=== PATIENT | male | born 1950 | race Caucasian/White ===

== ENCOUNTER 2020-10-22 13:45 | Inpatient (IN) ==
[2020-10-22] MEDS ORDERED: ALBUTEROL HFA 8 GM INHALER INH ONE (14:14)
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
[2020-10-22 14:44] LABS: Basophils # (auto) 0.02 K/uL (0-0.2); Basophils % (auto) 0.2 %; Eosinophils # (auto) 0.03 K/uL (0-0.5); Eosinophils % (auto) 0.3 %; Hematocrit (blood only) 41.6 % (42-52); Hemoglobin 13.9 g/dL (14.0-18.0); Immature Granulocytes # (auto) 0.18 K/uL (0.00-0.02); Immature Granulocytes % (auto) 1.7 %; Lymphocytes # (auto) 1.56 K/uL (1.2-3.4); Lymphocytes % (auto) 14.8 %; Mean Corpuscular Hemoglobin 31.7 pg (25-34); Mean Corpuscular Hgb Conc 33.4 g/dL (32-36); Mean Platelet Volume 10.4 fL (7.4-10.4); Monocytes # (auto) 0.69 K/uL (0.11-0.59); Monocytes % (auto) 6.6 %; Neutrophils # (auto) 8.03 K/uL (1.4-6.5); Neutrophils % (auto) 76.4 %; Platelet Count 356 K/uL (130-400); RDW Standard Deviation 45.2 fL (36.4-46.3); Red Blood Count 4.38 M/uL (4.7-6.1); White Blood Count 10.51 K/uL (4.8-10.8)
[2020-10-22 15:02] LABS: Alanine Aminotransferase 10 U/L (12-78); Albumin Level 2.2 gm/dl (3.4-5.0); Aspartate Aminotransferase 55 U/L (15-37); BUN Creatinine Ratio 17.8 (10-20); Blood Urea Nitrogen 17 mg/dl (7-18); Carbon Dioxide 30 mmol/L (21-32); Chloride 97 mmol/L (98-107); Creatinine Clr Calc Pharmacy 86.3 ml/min; Est GFR (African American) 94.9; Est GFR (Non-African American) 81.9; Glucose 122 mg/dl (70-99); Magnesium 2.1 mg/dl (1.8-2.4); Potassium 3.8 mmol/L (3.5-5.1); Sodium 134 mmol/L (136-145)
[2020-10-22 15:12] LABS: Albumin Globulin Ratio 0.4 (0.9-2); Alkaline Phosphatase 67 U/L (45-117); Bilirubin,Total 0.9 mg/dl (0.2-1); Globulin 5.7 gm/dl (2.5-4.0); NT Pro B Type Natriuretic Pept 212 pg/ml (0-900); Thyroid Stimulating Hormone 0.122 uIu/ml (0.300-4.500); Total Protein 7.9 gm/dl (6.4-8.2); Troponin I < 0.015 ng/ml (0-0.045)
[2020-10-22 15:25] LABS: T4 Free Thyroxine 1.43 ng/dl (0.8-1.6)
--- NOTE | 2020-10-22 15:35 | CT Scan Report ---
CT head/brain wo con CLINICAL HISTORY: confusion COMPARISON STUDY: No previous studies for comparison. TECHNIQUE: Axial CT of the brain is performed from the vertex to the skull base. IV contrast was not administered for this examination. A dose lowering technique was utilized adhering to the principles of ALARA. CT DOSE: 884.08 mGy.cm FINDINGS: No intra or extra-axial mass lesions are visualized. There is no CT evidence of acute cortical infarc tion. There is no evidence of midline shift. There is no acute hemorrhage. No calvarial fractures ar e visualized. There are patchy white matter hypodensities likely on a small vessel basis. There is no evidence of pathologic ventricular dilatation. There is mild left exit sinus mucosal thickening. IMPRESSION: No acute intracranial findings ACT 112: Negative or not required by law. Electronically signed by: Mello Vasques M.D. 10/22/2020 3:34 PM
[2020-10-22] MEDS ORDERED: CEFEPIME 2,000 MG/20 ML VIAL IV STA (16:02)
[2020-10-22] MEDS ORDERED: DEXAMETHASONE SOD INJ 10 MG/ML VIAL IV ONE (16:02)
[2020-10-22 16:03] LABS: Influenza A virus by PCR Negative (Neg); Influenza B virus by PCR Negative (Neg); RSV by PCR Negative (Neg)
--- NOTE | 2020-10-22 16:06 | XRay Report ---
XR chest 1V portable CLINICAL HISTORY: weakness COMPARISON STUDY: No previous studies for comparison. FINDINGS: The heart is enlarged. There are multifocal pulmonary airspace opacity suspicious for a mul tifocal pneumonia. There is a more masslike opacity within the right mid to upper lung zone measuring 4.5 cm. Given the other findings, this likely represents a focal pneumonia. Imaging follow-up will b e necessary to exclude an underlying mass.[ IMPRESSION: 1. Cardiomegaly 2. Multifocal airspace opacities suspicious for multifocal pneumonia 3. 4.5 cm masslike opacity within the right mid to upper lung zone. This is likely a focal pneumonia given the other findings. Careful follow-up will be necessary to exclude an underlying neoplasm. ACT 112: Negative or not required by law. Electronically signed by: Mello Vasques M.D. 10/22/2020 4:04 PM
[2020-10-22 16:29] LABS: SARS CoV2 RNA(COVID-19) InHosp POSITIVE (Negative)
[2020-10-22] MEDS ORDERED: OPTIRAY 320 125ml IV ONE (16:32)
--- NOTE | 2020-10-22 16:46 | CT Scan Report ---
CT ANGIOGRAM OF THE CHEST CLINICAL HISTORY: Calf pain and shortness of breath. Possible pulmonary embolism. ABNORMAL CHEST X-RA Y COMPARISON STUDY: Chest x-ray dated 10/22/2020 TECHNIQUE: Following the IV administration of 116 mL of Optiray-320, CT angiogram of the thorax was p erformed from the thoracic inlet to the lung bases utilizing the pulmonary embolus protocol. Images a re reviewed in the axial, sagittal, and coronal planes. IV contrast was administered without complica tion. MIP imaging was performed. A dose lowering technique was utilized adhering to the principles o f ALARA. CT DOSE: 495.61 mGy.cm FINDINGS: There is mediastinal and hilar lymphadenopathy, likely reactive. There is dilatation of the ascending thoracic aorta which measures 40 mm There are segmental and subsegmental right lower lobe and right middle lobe pulmonary artery filling defects indicative of acute pulmonary embolism there is no evidence of right ventricular strain. There are right-sided pleurodiaphragmatic calcifications. There are no significant pleural effusions There are extensive bilateral pulmonary airspace opacities consistent with a multifocal pneumonia. Fi ndings are suspicious for Covid 19 pneumonia IMPRESSION: 1. Right middle and lower lobe pulmonary artery filling defects indicative of acute pulmonary embolis m 2. Extensive bilateral pulmonary airspace opacities consistent with a multifocal pneumonia. The findi ngs are suspicious for Covid 19 pneumonia 3. Mediastinal and hilar lymphadenopathy likely reactive 4. Right-sided calcified pleural plaques 5. Mild aneurysmal dilatation of the ascending thoracic aorta which measures 40 mm ACT 112: Negative or not required by law. Electronically signed by: Mello Vasques M.D. 10/22/2020 4:44 PM
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
[2020-10-22 17:27] LABS: Appearance Urine Clear (Clear); Bacteria Urine Automated Negative (Negative); Blood Urine Negative (Negative); Color Urine Dark Yellow; Epithelial Cell Urine Auto >30 /lpf (0-5); Glucose Urine UA Negative (Negative); Ketones Urine 1+ (Negative); Leukocyte Esterase Urine Negative (Negative); Nitrite Urine Positive (Negative); Protein Urine 2+ (Negative); Specific Gravity Urine > 1.045 (1.000-1.030); Urobilinogen Urine Positive (Negative); pH Urine 6.5 (4.5-7.5)
[2020-10-22 17:36] LABS: Bilirubin Urine 1+ (Negative)
[2020-10-22 18:02] LABS: Mucus Urine Present (None Prsent)
[2020-10-22] MEDS ORDERED: REMDESIVIR 200 MG in SODIUM CHLORIDE 0.9% 210 ML IV STA (18:17)
[2020-10-22] MEDS ORDERED: HEPARIN SODIUM/DEXTROSE 25,000 UNITS/500 ML BAG IV SCH (18:17)
[2020-10-22] MEDS ORDERED: Heparin IV Standard *NO* Bolus ONE (18:17)
[2020-10-22] MEDS ORDERED: ACETAMINOPHEN 325 MG TAB PO SCH (18:41)
[2020-10-22] MEDS ORDERED: ONDANSETRON INJ 2 MG/ML 2 ML VIAL IV PRN (18:41)
[2020-10-22] MEDS ORDERED: ACETAMINOPHEN 325 MG TAB PO PRN (18:41)
[2020-10-22] MEDS: SODIUM CHLORIDE 0.9% 1000ML 1,000 ML IV SCH (20:00)
[2020-10-22] MEDS: SODIUM CHLORIDE 0.9% 10ML FLUSH IV SCH (20:01)
[2020-10-22] MEDS: CARBIDOPA/LEVODOPA 25/100MG TAB PO SCH (20:02)
[2020-10-22] MEDS: MIRTAZAPINE SOLTAB 15 MG PO SCH (20:03)
[2020-10-22] MEDS: PRIMIDONE 50 MG TAB PO SCH (20:03)
[2020-10-22] MEDS: GABAPENTIN 300 MG CAP PO SCH (20:03)
[2020-10-22] MEDS: oxyCODONE HCL IR 5 MG TAB (IMMEDIATE RELEASE) PO PRN (20:04)
[2020-10-23 02:37] LABS: Partial Thromboplastin Time 56.5 Seconds (21.0-31.0)
[2020-10-23] MEDS: SODIUM CHLORIDE 0.9% 1000ML 1,000 ML IV SCH (05:16)
--- NOTE | 2020-10-23 07:51 | Hospitalist Progress Note ---
Date of Service October 23, 2020 Assessment & Plan (1) Pneumonia due to 2019 novel coronavirus: Acute respiratory failure with hypoxia due to Covid pneumonia illness started 10/15/20 * dexamethasone 6mg IV/PO daily x 10 days * his sister and he both consented for plasma * Remdesivir x 5 days Pulmonary toilet, self-proning (if he can tolerate - has chronic low back pain), and flutter valve/incentive. O2 to keep sats >90%. CT chest 10/22/20 IMPRESSION: 1. Right middle and lower lobe pulmonary artery filling defects indicative of acute pulmonary embolism 2. Extensive bilateral pulmonary airspace opacities consistent with a multifocal pneumonia. The findings are suspicious for Covid 19 pneumonia 3. Mediastinal and hilar lymphadenopathy likely reactive 4. Right-sided calcified pleural plaques 5. Mild aneurysmal dilatation of the ascending thoracic aorta which measures 40 mm (2) Pulmonary embolism associated with COVID-19: Started heparin infusion - transition to xarelto Initial discussion the check Dopplers was thwarted with the patient's Covid status and the fact that Doppler finding blood clots would not change our therapeutic decision is currently radiology asked for Dopplers to be discontinued (3) Hyponatremia: Resolved (4) Metabolic encephalopathy: 2nd COVID-19. This is in setting of mild cognitive impairment. Patient's discussion of alcohol use will be having our nursing staff URI for signs of alcohol withdrawal Supportive care. Avoid benzos/sedatives. Reduce dose of gabapentin to 300mg TID from 600mg TID in light of mild confusion. (5) MCI (mild cognitive impairment): Continue usual outpatient meds. Donepezil (6) Parkinsonism: Follows with Dr Thompson, [facility] neurology. Last visit 06/2020. Cont sinemet. Cont primidone. Patient with worsening tremors, rigidity, etc last 1-2 weeks. There is documentation in the literature that COVID-19 worsens movement disorders. He also has been noncompliant with his parkinsonism meds per sister. (7) Chronic pain syndrome: Takes oxycodone daily at home for lumbar back pain, right shoulder pain, left knee pain, etc. Continue such. Also takes gabapentin Bowel regimen. (8) Elevated AST (SGOT): Likely 2nd to COVID-19 itself. Serial ast/alt in light of Remdesivir use. (9) Abnormal casts in urine: RBC casts, WBC casts, granular casts. C/w probable ATN in setting of COVID-19. He has protein on u/a but no blood - this would argue against glomerulonephritis. (10) DVT prophylaxis: Transition to therapeutic Xarelto full code. PT, OT evals. Admission and Anticipated Discharge Date Admission Date: October 22, 2020 Subjective Patient is complaints or distress he is somewhat confused about his oxygen requirements he did make comments about drinking a sixpack I instructed the nurse to be wary about alcohol withdrawal in this patient. Otherwise he is dyspneic with a nonproductive cough Review of Systems Review of Systems: Mild distress and fatigue no headache, blurry or double vision no speech or swallowing issues no loss of taste he has chronic loss of smell after nasal surgery some years ago no chest pain, pressure or palpitations Shortness of breath dyspnea nonproductive cough no wheezes no abdominal pain, nausea or vomiting, diarrhea no dysuria, hematuria or frequency no focal joint pain or swelling no back pain, CVA tenderness or radicular pain no bruising, bleeding or rashes no focal signs of weakness or numbness or altered sensation no complaints of anxiety or depression.. Physical Exam Physical Exam: The patient appeared well nourished and normally developed. Vital signs as documented. Head exam is normocephalic atraumatic no scleral icterus Neck is without JVD, thyromegaly, or carotid bruits. Lungs are bilateral rales decreased breath sounds at the bases Cardiac exam, Rhythm is regular.. No murmurs, rubs or gallops. Abdominal exam reveals normal bowel sounds, soft non tender, no masses Extremities are nonedematous and both pedal pulses are present Neurologic exam is alert and oriented, seem to say some strange responses at times but is oriented, no focal loss of strength or sensation Skin is without bruises or rashes Psychologically is without concerns for anxiety or depression. Results & Data Results & Data ([facility]) Vital Signs (Past 12 Hours) Vital Signs Temp Pulse Pulse Resp BP BP Pulse Ox 10/23/20 07:00 97.0 F L 62 18 114/51 L 90 10/23/20 04:39 96.3 F L 62 16 136/68 92 10/23/20 00:52 96.3 F L 59 L 18 153/93 H 92 10/23/20 00:25 95.9 F L 10/23/20 00:22 96.1 F L 65 16 181/90 H 92 10/23/20 00:07 95.9 F L 68 18 147/93 H 92 10/22/20 23:52 94.4 F L 10/22/20 23:30 63 18 140/70 92 PG Care Time/CCT Total # of Minutes Spent Total Time Spent with Patient: Total time spent is greater than 50% in coordination of care (as documented) at patient's floor/unit and/or counseling patient: Coding Level of Care Code 05462 Subseq Hosp Care Lvl 3 Diagnoses Pneumonia due to 2019 novel coronavirus U07.1; J12.82 Pulmonary embolism associated with COVID-19 U07.1; I26.99 Hyponatremia E87.1 Metabolic encephalopathy G93.41 MCI (mild cognitive impairment) G31.84 Parkinsonism G20 Parkinsonism type: unspecified Chronic pain syndrome G89.4 Elevated AST (SGOT) R74.01 Abnormal casts in urine R82.998 DVT prophylaxis Z29.9 (1) Parkinsonism Parkinsonism type: unspecified Qualified Code(s): G20 - Parkinson's disease
[2020-10-23] MEDS: ASPIRIN 81 MG ECTAB PO SCH (08:18)
[2020-10-23] MEDS: dexAMETHasone 6 MG in SYRINGE 0 ML IV SCH (08:18)
[2020-10-23] MEDS: DONEPEZIL HCL 10 MG TAB PO SCH (08:18)
[2020-10-23] MEDS: POLYETHYLENE (MIRALAX) 17 GM PACK PO SCH (08:18)
[2020-10-23] MEDS: GABAPENTIN 300 MG CAP PO SCH ×3 (08:19→20:17)
[2020-10-23] MEDS: PRIMIDONE 50 MG TAB PO SCH ×3 (08:19→20:19)
[2020-10-23] MEDS: SERTRALINE HCL 100 MG TABLET PO SCH (08:20)
[2020-10-23] MEDS: CARBIDOPA/LEVODOPA 25/100MG TAB PO SCH ×4 (08:20→20:17)
[2020-10-23] MEDS: CHOLECALCIFEROL 1,000 UNITS 25 MCG TAB PO SCH (08:20)
[2020-10-23] MEDS: RIVAROXABAN 15 MG TAB PO SCH ×2 (08:22→20:19)
[2020-10-23] MEDS: oxyCODONE HCL IR 5 MG TAB (IMMEDIATE RELEASE) PO PRN (08:30)
[2020-10-23 08:48] LABS: Partial Thromboplastin Ratio 2.2
[2020-10-23 08:50] LABS: BUN Creatinine Ratio 24.5 (10-20); Calcium 8.4 mg/dl (8.5-10.1); Creatinine Clr Calc Pharmacy 127.7 ml/min; Est GFR (African American) 115.9; Potassium 4.1 mmol/L (3.5-5.1)
[2020-10-23 08:55] LABS: Partial Thromboplastin Time 60.3 Seconds (21.0-31.0)
--- NOTE | 2020-10-23 12:27 | Electrocardiogram Report ---
Test Reason : Blood Pressure : / mmHG Vent. Rate : 088 BPM Atrial Rate : 088 BPM P-R Int : 182 ms QRS Dur : 104 ms QT Int : 376 ms P-R-T Axes : 038 014 045 degrees QTc Int : 454 ms Poor data quality, interpretation may be adversely affected Normal sinus rhythm Normal ECG No previous ECGs available Confirmed by Shadi Quezada ([id number]) on 10/23/2020 12:26:54 PM Referred By: Mikki Mason Confirmed By:Shadi Quezada
[2020-10-23] MEDS: REMDESIVIR 100 MG in SODIUM CHLORIDE 0.9% 230 ML IV SCH (20:10)
[2020-10-23] MEDS: MIRTAZAPINE SOLTAB 15 MG PO SCH (20:20)
[2020-10-23] MEDS: SODIUM CHLORIDE 0.9% 10ML FLUSH IV SCH (21:43)
[2020-10-24 07:26] LABS: Alanine Aminotransferase 11 U/L (12-78); Aspartate Aminotransferase 32 U/L (15-37)
[2020-10-24] MEDS: PRIMIDONE 50 MG TAB PO SCH ×3 (08:51→20:23)
[2020-10-24] MEDS: RIVAROXABAN 15 MG TAB PO SCH ×2 (08:53→20:22)
[2020-10-24] MEDS: SERTRALINE HCL 100 MG TABLET PO SCH (08:53)
[2020-10-24] MEDS: CHOLECALCIFEROL 1,000 UNITS 25 MCG TAB PO SCH (08:53)
[2020-10-24] MEDS: DONEPEZIL HCL 10 MG TAB PO SCH (08:54)
[2020-10-24] MEDS: GABAPENTIN 300 MG CAP PO SCH ×3 (08:57→20:23)
[2020-10-24] MEDS: ASPIRIN 81 MG ECTAB PO SCH (08:57)
[2020-10-24] MEDS: CARBIDOPA/LEVODOPA 25/100MG TAB PO SCH ×4 (08:58→20:24)
[2020-10-24] MEDS: dexAMETHasone 6 MG in SYRINGE 0 ML IV SCH (08:59)
[2020-10-24] MEDS: POLYETHYLENE (MIRALAX) 17 GM PACK PO SCH (08:59)
--- NOTE | 2020-10-24 11:16 | Hospitalist Progress Note ---
Date of Service October 24, 2020 Assessment & Plan (1) Pneumonia due to 2019 novel coronavirus: Acute respiratory failure with hypoxia due to Covid pneumonia illness started 10/15/20 * dexamethasone 6mg IV/PO daily x 10 days, today is day 3 * plasma administered * Remdesivir x 5 days, today is day 3 Pulmonary toilet, self-proning (if he can tolerate - has chronic low back pain), and flutter valve/incentive. O2 to keep sats >90%. CT chest 10/22/20 IMPRESSION: 1. Right middle and lower lobe pulmonary artery filling defects indicative of acute pulmonary embolism 2. Extensive bilateral pulmonary airspace opacities consistent with a multifocal pneumonia. The findings are suspicious for Covid 19 pneumonia 3. Mediastinal and hilar lymphadenopathy likely reactive 4. Right-sided calcified pleural plaques 5. Mild aneurysmal dilatation of the ascending thoracic aorta which measures 40 mm (2) Pulmonary embolism associated with COVID-19: Started heparin infusion - transitioned to xarelto 15mg BID would need 6 months of treatment (3) Hyponatremia: Resolved (4) Metabolic encephalopathy: 2nd COVID-19. This is in setting of mild cognitive impairment. Patient's discussion of alcohol use will be having our nursing staff URI for signs of alcohol withdrawal Supportive care. Avoid benzos/sedatives. Reduce dose of gabapentin to 300mg TID from 600mg TID in light of mild confusion. mental status seems stable today (5) MCI (mild cognitive impairment): Continue usual outpatient meds. Donepezil (6) Parkinsonism: [place] with Dr Thompson, [facility] [place]. Last visit 06/2020. Cont sinemet. Cont primidone. Patient with worsening tremors, rigidity, etc last 1-2 weeks. There is documentation in the literature that COVID-19 worsens movement disorders. He also has been noncompliant with his parkinsonism meds per sister. (7) Chronic pain syndrome: Takes oxycodone daily at home for lumbar back pain, right shoulder pain, left knee pain, etc. Continue such. Also takes gabapentin Bowel regimen. (8) Elevated AST (SGOT): Likely 2nd to COVID-19 itself. Serial ast/alt in light of Remdesivir use. (9) Abnormal casts in urine: RBC casts, WBC casts, granular casts. C/w probable ATN in setting of COVID-19. He has protein on u/a but no blood - this would argue against glomerulonephritis. (10) DVT prophylaxis: Transition to therapeutic Xarelto full code. PT, OT jodyals. Admission and Anticipated Discharge Date Admission Date: October 22, 2020 Subjective patient feeling okay this morning, says he is really fatigued he slept a lot last night, was up in a chair for maybe 30 minutes today, needed to lay back down no fever/chills, eating well, had a BM yesterday and making urine no chest pain with the PE, no fever/chills, minimal cough has dyspnea on exertion but not much at rest reviewed chart reviewed labs, AST and ALT normal Review of Systems Review of Systems: All systems reviewed & are unremarkable except as noted in Subjective Physical Exam Constitutional: WD/WN, vitals as above no acute distress Neck: trachea midline, no thyromegaly Respiratory: normal respiratory effort, lungs clear to auscultation Cardiovascular: RRR, no murmur, no edema Gastrointestinal (Abdomen): normal bowel sounds, soft, nontender, no hepatosplenomegaly Musculoskeletal: no cyanosis or clubbing, extremities motor strength 5/5 Skin: no rashes, warm and dry Neurologic: patellar DTR's 2+ bilat, sensation intact and PERRL, EOMI, accommodation nl, no face palsy, no dysarthria Psychiatric: A+Ox3, euthymic affect Lymphatic: no cervical or axillary lymphadenopathy Results & Data Results & Data ([facility]) Vital Signs (Past 12 Hours) Vital Signs Temp Pulse Pulse Resp BP Pulse Ox Pulse Ox 10/24/20 10:03 71 10/24/20 09:43 85 L 10/24/20 07:25 36.3 C L 65 17 121/55 L 98 10/24/20 04:00 36.8 C 64 19 103/44 L 92 10/23/20 23:35 36.8 C 60 19 90/44 L 97 Pulse Ox 10/24/20 10:03 10/24/20 09:43 90 10/24/20 07:25 10/24/20 04:00 10/23/20 23:35 Laboratory Results Laboratory Results - last 24 hr 10/24/20 06:14 AST 32 ALT 11 L Medications Administered Current Inpatient Medications Acetaminophen (Acetaminophen 325 Mg Tab) 650 mg PO Q4H PRN PRN Reason: Pain or Fever Stop: 03/01/21 18:40 Aspirin (Aspirin 81 Mg Ectab) 81 mg PO QAM [facility] Stop: 11/22/20 08:59 Last Admin: 10/24/20 08:57 Dose: 81 mg Documented by: Carbidopa/Levodopa (Carbidopa/Levodopa 25/100mg Tab) 2 tab PO QID [facility] Stop: 11/21/20 20:59 Last Admin: 10/24/20 08:58 Dose: 2 tab Documented by: Donepezil HCl (Donepezil Hcl 10 Mg Tab) 10 mg PO QAM [facility] Stop: 11/22/20 08:59 Last Admin: 10/24/20 08:54 Dose: 10 mg Documented by: Gabapentin (Gabapentin 300 Mg Cap) 300 mg PO TID [facility] Stop: 11/21/20 20:59 Last Admin: 10/24/20 08:57 Dose: 300 mg Documented by: Remdesivir 100 mg/ Sodium (Chloride) 250 mls @ 250 mls/hr IV Q24H [facility]; Protocol Stop: 10/26/20 20:59 Last Infusion: 10/23/20 21:43 Dose: Infused Documented by: Dexamethasone 6 mg/ Syringe 1.5 mls @ 1 mls/min IV DAILY [facility] Stop: 10/31/20 09:02 Last Admin: 10/24/20 08:59 Dose: 1 mls/min Documented by: Mirtazapine (Mirtazapine Soltab 15 Mg) 45 mg PO HS [facility] Stop: 11/21/20 20:59 Last Admin: 10/23/20 20:20 Dose: 45 mg Documented by: Ondansetron HCl (Ondansetron Inj 2 Mg/Ml 2 Ml Vial) 4 mg IV Q6H PRN PRN Reason: Nausea Stop: 11/21/20 18:40 Oxycodone HCl (Oxycodone Hcl Ir 5 Mg Tab (Immediate Release)) 10 mg PO TID PRN PRN Reason: pain Stop: 11/05/20 18:40 Last Admin: 10/23/20 08:30 Dose: 10 mg Documented by: Polyethylene Glycol (Polyethylene (Miralax) 17 Gm Pack) 17 gm PO DAILY [facility] Stop: 11/22/20 08:59 Last Admin: 10/24/20 08:59 Dose: Not Given Documented by: Primidone (Primidone 50 Mg Tab) 50 mg PO TID [facility] Stop: 11/21/20 20:59 Last Admin: 10/24/20 08:51 Dose: 50 mg Documented by: Rivaroxaban (Rivaroxaban 15 Mg Tab) 15 mg PO BID [facility] Stop: 11/12/20 21:01 Last Admin: 10/24/20 08:53 Dose: 15 mg Documented by: Sertraline HCl (Sertraline Hcl 100 Mg Tablet) 100 mg PO QAM [facility] Stop: 11/22/20 08:59 Last Admin: 10/24/20 08:53 Dose: 100 mg Documented by: Sodium Chloride (Sodium Chloride 0.9% 10ml Flush) 30 ml IV Q24H [facility] Stop: 10/26/20 21:01 Last Admin: 10/23/20 21:43 Dose: 30 ml Documented by: Vitamin D (Cholecalciferol 1,000 Units 25 Mcg Tab) 1,000 units PO QAM [facility] Stop: 11/22/20 08:59 Last Admin: 10/24/20 08:53 Dose: 1,000 units Documented by: PG Care Time/CCT Total # of Minutes Spent Total Time Spent with Patient: Total time spent is greater than 50% in coordination of care (as documented) at patient's floor/unit and/or counseling patient: Coding Level of Care Code 11697 Subseq Hosp Care Lvl 3 Diagnoses Pneumonia due to 2019 novel coronavirus U07.1; J12.82 Pulmonary embolism associated with COVID-19 U07.1; I26.99 Hyponatremia E87.1 Metabolic encephalopathy G93.41 MCI (mild cognitive impairment) G31.84 Parkinsonism G20 Parkinsonism type: unspecified Chronic pain syndrome G89.4 Elevated AST (SGOT) R74.01 Abnormal casts in urine R82.998 DVT prophylaxis Z29.9 (1) Parkinsonism Parkinsonism type: unspecified Qualified Code(s): G20 - Parkinson's disease
[2020-10-24] MEDS: oxyCODONE HCL IR 5 MG TAB (IMMEDIATE RELEASE) PO PRN (11:32)
[2020-10-24] MEDS: REMDESIVIR 100 MG in SODIUM CHLORIDE 0.9% 230 ML IV SCH (20:19)
[2020-10-24] MEDS: MIRTAZAPINE SOLTAB 15 MG PO SCH (20:22)
[2020-10-24] MEDS: SODIUM CHLORIDE 0.9% 10ML FLUSH IV SCH (22:30)
[2020-10-25 07:36] LABS: Alanine Aminotransferase 15 U/L (12-78); Aspartate Aminotransferase 43 U/L (15-37)
[2020-10-25] MEDS: CHOLECALCIFEROL 1,000 UNITS 25 MCG TAB PO SCH (09:16)
[2020-10-25] MEDS: PRIMIDONE 50 MG TAB PO SCH ×3 (09:17→20:15)
[2020-10-25] MEDS: ASPIRIN 81 MG ECTAB PO SCH (09:18)
[2020-10-25] MEDS: GABAPENTIN 300 MG CAP PO SCH ×3 (09:18→20:15)
[2020-10-25] MEDS: DONEPEZIL HCL 10 MG TAB PO SCH (09:18)
[2020-10-25] MEDS: RIVAROXABAN 15 MG TAB PO SCH ×2 (09:19→20:15)
[2020-10-25] MEDS: dexAMETHasone 6 MG in SYRINGE 0 ML IV SCH (09:19)
[2020-10-25] MEDS: CARBIDOPA/LEVODOPA 25/100MG TAB PO SCH ×4 (09:19→20:15)
[2020-10-25] MEDS: SERTRALINE HCL 100 MG TABLET PO SCH (09:19)
[2020-10-25] MEDS: POLYETHYLENE (MIRALAX) 17 GM PACK PO SCH (09:20)
[2020-10-25] MEDS: oxyCODONE HCL IR 5 MG TAB (IMMEDIATE RELEASE) PO PRN (09:25)
--- NOTE | 2020-10-25 13:39 | Hospitalist Progress Note ---
Date of Service October 25, 2020 Assessment & Plan (1) Acute respiratory failure with hypoxia: due to COVID 19 pneumonia and acute PE stable on 5L today, no distress continue to try to wean down oxygen requirements (2) Pneumonia due to 2019 novel coronavirus: Acute respiratory failure with hypoxia due to Covid pneumonia illness started 10/15/20 * dexamethasone 6mg IV/PO daily x 10 days, today is day 4 * plasma administered * Remdesivir x 5 days, today is day 4 Pulmonary toilet, self-proning (if he can tolerate - has chronic low back pain), and flutter valve/incentive. O2 to keep sats >90%. (3) Pulmonary embolism associated with COVID-19: Started heparin infusion on admission - transitioned to xarelto 15mg BID x 21 days then 20mg daily would need 6 months of treatment (4) Hyponatremia: Resolved (5) Metabolic encephalopathy: 2nd COVID-19. This is in setting of mild cognitive impairment. Patient's discussion of alcohol use will be having our nursing staff URI for signs of alcohol withdrawal Supportive care. Avoid benzos/sedatives. Reduce dose of gabapentin to 300mg TID from 600mg TID in light of mild confusion. mental status seems stable today (6) MCI (mild cognitive impairment): Continue usual outpatient meds. Donepezil (7) Parkinsonism: [place] with Dr Thompson, [facility]. Last visit 06/2020. Cont sinemet. Cont primidone. Patient with worsening tremors, rigidity, etc last 1-2 weeks. There is documentation in the literature that COVID-19 worsens movement disorders. He also has been noncompliant with his parkinsonism meds per sister. (8) Chronic pain syndrome: Takes oxycodone daily at home for lumbar back pain, right shoulder pain, left knee pain, etc. Continue such. Also takes gabapentin Bowel regimen. (9) Elevated AST (SGOT): Likely 2nd to COVID-19 itself. Serial ast/alt in light of Remdesivir use. (10) Abnormal casts in urine: RBC casts, WBC casts, granular casts. C/w probable ATN in setting of COVID-19. He has protein on u/a but no blood - this would argue against glomerulonephritis. (11) DVT prophylaxis: Transition to therapeutic Xarelto full code. PT, OT evals. Admission and Anticipated Discharge Date Admission Date: October 22, 2020 Subjective patient doing okay today, no major issues he participated with physical therapy, refused OT because he felt like he had done enough he is upset about timing of his medications, he wants to take his Sinemet with his primidone and gabapentin he is eating okay, had a BM yesterday, making urine AST and ALT normal today he is down to 5L NC today he wants to know when he can leave, told him he will be here all week Review of Systems Review of Systems: All systems reviewed & are unremarkable except as noted in Subjective Constitutional: no fever, no chills, no sweats, no fatigue and no weakness Respiratory: + dyspnea on exertion; no cough and no dyspnea Cardiovascular: no chest pain and no edema Physical Exam Constitutional: WD/WN, vitals as above no acute distress Neck: trachea midline, no thyromegaly Respiratory: normal respiratory effort, lungs clear to auscultation Cardiovascular: RRR, no murmur, no edema Gastrointestinal (Abdomen): normal bowel sounds, soft, nontender, no hepatosplenomegaly Musculoskeletal: no cyanosis or clubbing, extremities motor strength 5/5 Skin: no rashes, warm and dry Neurologic: patellar DTR's 2+ bilat, sensation intact and PERRL, EOMI, accommodation nl, no face palsy, no dysarthria Psychiatric: A+Ox3, euthymic affect Lymphatic: no cervical or axillary lymphadenopathy Results & Data Results & Data ([facility]) Vital Signs (Past 12 Hours) Vital Signs Temp Pulse Pulse Resp BP BP Pulse Ox 10/25/20 11:39 36.5 C 77 18 115/50 L 90 10/25/20 11:15 68 10/25/20 07:54 36.5 C 74 18 99/54 L 91 10/25/20 03:23 36.6 C 75 22 134/65 90 Laboratory Results Laboratory Results - last 24 hr 10/25/20 05:58 AST 43 H ALT 15 Medications Administered Current Inpatient Medications Acetaminophen (Acetaminophen 325 Mg Tab) 650 mg PO Q4H PRN PRN Reason: Pain or Fever Stop: 11/21/20 18:40 Aspirin (A[facility]in 81 Mg Ectab) [facility] Stop: 11/22/20 08:59 Last Admin: 10/25/20 09:18 Dose: 81 mg Documented by: Carbidopa/Levodopa (Carbidopa/Levodopa 25/100mg Tab) 2 tab PO QID [facility] Stop: 11/21/20 20:59 Last Admin: 10/25/20 12:16 Dose: 2 tab Documented by: Donepezil HCl (Donepezil Hcl 10 Mg Tab) 10 mg PO QAM [facility] Stop: 11/22/20 08:59 Last Admin: 10/25/20 09:18 Dose: 10 mg Documented by: Gabapentin (Gabapentin 300 Mg Cap) 300 mg PO TID [facility] Stop: 11/21/20 20:59 Last Admin: 10/25/20 13:20 Dose: 300 mg Documented by: Remdesivir 100 mg/ Sodium (Chloride) 250 mls @ 250 mls/hr IV Q24H [facility]; Protocol Stop: 10/26/20 20:59 Last Infusion: 10/24/20 22:30 Dose: Infused Documented by: Dexamethasone 6 mg/ Syringe 1.5 mls @ 1 mls/min IV DAILY [facility] Stop: 10/31/20 09:02 Last Admin: 10/25/20 09:19 Dose: 1 mls/min Documented by: Mirtazapine (Mirtazapine Soltab 15 Mg) 45 mg PO HS [facility] Stop: 11/21/20 20:59 Last Admin: 10/24/20 20:22 Dose: 45 mg Documented by: Ondansetron HCl (Ondansetron Inj 2 Mg/Ml 2 Ml Vial) 4 mg IV Q6H PRN PRN Reason: Nausea Stop: 11/21/20 18:40 Oxycodone HCl (Oxycodone Hcl Ir 5 Mg Tab (Immediate Release)) 10 mg PO TID PRN PRN Reason: pain Stop: 11/05/20 18:40 Last Admin: 10/25/20 09:25 Dose: 10 mg Documented by: Polyethylene Glycol (Polyethylene (Miralax) 17 Gm Pack) 17 gm PO DAILY [facility] Stop: 11/22/20 08:59 Last Admin: 10/25/20 09:20 Dose: Not Given Documented by: Primidone (Primidone 50 Mg Tab) 50 mg PO TID [facility] Stop: 11/21/20 20:59 Last Admin: 10/25/20 13:18 Dose: 50 mg Documented by: Rivaroxaban (Rivaroxaban 15 Mg Tab) 15 mg PO BID [facility] Stop: 11/12/20 21:01 Last Admin: 10/25/20 09:19 Dose: 15 mg Documented by: Sertraline HCl (Sertraline Hcl 100 Mg Tablet) 100 mg PO QAM [facility] Stop: 11/22/20 08:59 Last Admin: 10/25/20 09:19 Dose: 100 mg Documented by: Sodium Chloride (Sodium Chloride 0.9% 10ml Flush) 30 ml IV Q24H [facility] Stop: 10/26/20 21:01 Last Admin: 10/24/20 22:30 Dose: 30 ml Documented by: Vitamin D (Cholecalciferol 1,000 Units 25 Mcg Tab) 1,000 units PO QAM [facility] Stop: 11/22/20 08:59 Last Admin: 10/25/20 09:16 Dose: 1,000 units Documented by: PG Care Time/CCT Total # of Minutes Spent Total Time Spent with Patient: Total time spent is greater than 50% in coordination of care (as documented) at patient's floor/unit and/or counseling patient: Coding Level of Care Code 26102 Subseq Hosp Care Lvl 3 Diagnoses Acute respiratory failure with hypoxia J96.01 Pneumonia due to 2019 novel coronavirus U07.1; J12.82 Pulmonary embolism associated with COVID-19 U07.1; I26.99 Hyponatremia E87.1 Metabolic encephalopathy G93.41 MCI (mild cognitive impairment) G31.84 Parkinsonism G20 Parkinsonism type: unspecified Chronic pain syndrome G89.4 Elevated AST (SGOT) R74.01 Abnormal casts in urine R82.998 DVT prophylaxis Z29.9 (1) Parkinsonism Parkinsonism type: unspecified Qualified Code(s): G20 - Parkinson's disease
[2020-10-25] MEDS: REMDESIVIR 100 MG in SODIUM CHLORIDE 0.9% 230 ML IV SCH (20:05)
[2020-10-25] MEDS: MIRTAZAPINE SOLTAB 15 MG PO SCH (20:15)
[2020-10-25] MEDS: SODIUM CHLORIDE 0.9% 10ML FLUSH IV SCH (22:42)
[2020-10-26] MEDS: oxyCODONE HCL IR 5 MG TAB (IMMEDIATE RELEASE) PO PRN ×3 (05:11→17:42)
[2020-10-26 06:54] LABS: Alanine Aminotransferase 29 U/L (12-78); Aspartate Aminotransferase 89 U/L (15-37)
[2020-10-26] MEDS: RIVAROXABAN 15 MG TAB PO SCH ×2 (08:05→20:08)
[2020-10-26] MEDS: CHOLECALCIFEROL 1,000 UNITS 25 MCG TAB PO SCH (08:05)
[2020-10-26] MEDS: POLYETHYLENE (MIRALAX) 17 GM PACK PO SCH (08:05)
[2020-10-26] MEDS: DONEPEZIL HCL 10 MG TAB PO SCH (08:05)
[2020-10-26] MEDS: CARBIDOPA/LEVODOPA 25/100MG TAB PO SCH ×4 (08:05→20:09)
[2020-10-26] MEDS: SERTRALINE HCL 100 MG TABLET PO SCH (08:05)
[2020-10-26] MEDS: PRIMIDONE 50 MG TAB PO SCH ×3 (08:05→20:09)
[2020-10-26] MEDS: GABAPENTIN 300 MG CAP PO SCH ×3 (08:05→20:08)
[2020-10-26] MEDS: ASPIRIN 81 MG ECTAB PO SCH (08:05)
[2020-10-26] MEDS: dexAMETHasone 6 MG in SYRINGE 0 ML IV SCH (08:06)
--- NOTE | 2020-10-26 12:50 | Hospitalist Progress Note ---
Date of Service October 26, 2020 Assessment & Plan (1) Acute respiratory failure with hypoxia: due to COVID 19 pneumonia and acute PE remains stable on 5L today, no distress continue to try to wean down oxygen requirements (2) Pneumonia due to 2019 novel coronavirus: Acute respiratory failure with hypoxia due to Covid pneumonia illness started 10/15/20 * dexamethasone 6mg IV/PO daily x 10 days, today is day 5 * plasma administered * Remdesivir x 5 days, completed 2/3 Pulmonary toilet, self-proning (if he can tolerate - has chronic low back pain), and flutter valve/incentive. O2 to keep sats >90%. (3) Pulmonary embolism associated with COVID-19: Started heparin infusion on admission - transitioned to xarelto 15mg BID x 21 days then 20mg daily would need 6 months of treatment (4) Hyponatremia: Resolved (5) Metabolic encephalopathy: 2nd COVID-19. This is in setting of mild cognitive impairment. Patient's discussion of alcohol use will be having our nursing staff URI for signs of alcohol withdrawal Supportive care. Avoid benzos/sedatives. Reduce dose of gabapentin to 300mg TID from 600mg TID in light of mild confusion. mental status stable for several days, will increase gabapentin back to 600mg TID (6) MCI (mild cognitive impairment): Continue usual outpatient meds. Donepezil (7) Parkinsonism: Follows with Dr Thompson, [facility] neurolog[facility]. Last visit 06/2020. Cont sinemet. Cont primidone. Patient with worsening tremors, rigidity, etc last 1-2 weeks. There is documentation in the literature that COVID-19 worsens movement disorders. He also has been noncompliant with his parkinsonism meds per sister. (8) Chronic pain syndrome: Takes oxycodone daily at home for lumbar back pain, right shoulder pain, left knee pain, etc. Continue such. Also takes gabapentin Bowel regimen. (9) Elevated AST (SGOT): Likely 2nd to COVID-19 itself. Serial ast/alt in light of Remdesivir use, levels have been stable (10) Abnormal casts in urine: RBC casts, WBC casts, granular casts. C/w probable ATN in setting of COVID-19. He has protein on u/a but no blood - this would argue against isis merulonephritis. (11) DVT prophylaxis: Transition to therapeutic Xarelto full code. PT, OT evals. (12) Insomnia: likely due to being in hospital, uncomfortable in bed will increase his gabapentin to 600mg TID which is his home dose will try a small dose of Ativan 0.5mg PO at bedtime Admission and Anticipated Discharge Date Admission Date: October 22, 2020 Subjective patient doing okay today, says he needs to get home, says he cannot get rest here says the bed is uncomfortable, asking about setting up for home oxygen and going home explained to him that he is on too much oxygen today, 5L, would be okay sending him on 2L he is eating okay spoke with him about increasing his gabapentin back up to 600mg, he agrees asked him if he drinks on a regular basis as that may be a reason for his inability to rest, he says he does not drink regularly he is making urine, moving his bowels no fever/chills he asked me to text his sister with updates, told him I could do that once but t ypically we do not test family members due to privacy Review of Systems Review of Systems: All systems reviewed & are unremarkable except as noted in Subjective Psychiatric: + abnormal sleep pattern, + irritability and + anxiety Physical Exam Constitutional: WD/WN, vitals as above no acute distress Neck: trachea midline, no thyromegaly Respiratory: normal respiratory effort, lungs clear to auscultation Cardiovascular: RRR, no murmur, no edema Gastrointestinal (Abdomen): normal bowel sounds, soft, nontender, no hepatosplenomegaly Musculoskeletal: no cyanosis or clubbing, extremities motor strength 5/5 Skin: no rashes, warm and dry Neurologic: patellar DTR's 2+ bilat, sensation intact and PERRL, EOMI, accommodation nl, no face palsy, no dysarthria Psychiatric: A+Ox3, euthymic affect Lymphatic: no cervical or axillary lymphadenopathy Results & Data Results & Data ([facility]) Vital Signs (Past 12 Hours) Vital Signs Temp Pulse Resp BP BP Pulse Ox 10/26/20 11:00 36.4 C L 74 20 120/65 91 10/26/20 07:10 36.4 C L 72 22 118/62 92 10/26/20 04:37 36.4 C L 63 20 130/61 95 Laboratory Results Laboratory Results - last 24 hr 10/26/20 06:07 AST 89 H ALT 29 Medications Administered Current Inpatient Medications Acetaminophen (Acetaminophen 325 Mg Tab) 650 mg PO Q4H PRN PRN Reason: Pain or Fever Stop: 11/21/20 18:40 Aspirin (Aspirin 81 Mg Ectab) 81 mg PO QAM [facility] Stop: 11/22/20 08:59 Last Admin: 10/26/20 08:05 Dose: 81 mg Documented by: Carbidopa/Levodopa (Carbidopa/Levodopa 25/100mg Tab) 2 tab PO QID [facility] Stop: 11/21/20 20:59 Last Admin: 10/26/20 12:16 Dose: 2 tab Documented by: Donepezil HCl ([facility] Hcl 10 Mg Tab) [facility] Stop: 11/22/20 08:59 Last Admin: 10/26/20 08:05 Dose: 10 mg Documented by: Gabapentin (Gabapentin 300 Mg Cap) 300 mg PO TID [facility] Stop: 11/21/20 20:59 Last Admin: 10/26/20 08:05 Dose: 300 mg Documented by: Remdesivir 100 mg/ Sodium (Chloride) 250 mls @ 250 mls/hr IV Q24H [facility]; Protocol Stop: 10/26/20 20:59 Last Infusion: 10/25/20 21:05 Dose: Infused Documented by: Dexamethasone 6 mg/ Syringe 1.5 mls @ 1 mls/min IV DAILY [facility] Stop: 10/31/20 09:02 Last Admin: 10/26/20 08:06 Dose: 1 mls/min Documented by: Mirtazapine (Mirtazapine Soltab 15 Mg) 45 mg PO HS [facility] Stop: 11/21/20 20:59 Last Admin: 10/25/20 20:15 Dose: 45 mg Documented by: Ondansetron HCl (Ondansetron Inj 2 Mg/Ml 2 Ml Vial) 4 mg IV Q6H PRN PRN Reason: Nausea Stop: 11/21/20 18:40 Oxycodone HCl (Oxycodone Hcl Ir 5 Mg Tab (Immediate Release)) 10 mg PO TID PRN PRN Reason: pain Stop: 11/05/20 18:40 Last Admin: 10/26/20 12:17 Dose: 10 mg Documented by: Polyethylene Glycol (Polyethylene (Miralax) 17 Gm Pack) 17 gm PO DAILY [facility] Stop: 11/22/20 08:59 Last Admin: 10/26/20 08:05 Dose: 17 gm Documented by: Primidone (Primidone 50 Mg Tab) 50 mg PO TID [facility] Stop: 11/21/20 20:59 Last Admin: 10/26/20 08:05 Dose: 50 mg Documented by: Rivaroxaban (Rivaroxaban 15 Mg Tab) 15 mg PO BID [facility] Stop: 11/12/20 21:01 Last Admin: 10/26/20 08:05 Dose: 15 mg Documented by: Sertraline HCl (Sertraline Hcl 100 Mg Tablet) 100 mg PO QAM [facility] Stop: 11/22/20 08:59 Last Admin: 10/26/20 08:05 Dose: 100 mg Documented by: Sodium Chloride (Sodium Chloride 0.9% 10ml Flush) 30 ml IV Q24H [facility] Stop: 10/26/20 21:01 Last Admin: 10/25/20 22:42 Dose: 30 ml Documented by: Vitamin D (Cholecalciferol 1,000 Units 25 Mcg Tab) 1,000 units PO QAM [facility] Stop: 11/22/20 08:59 Last Admin: 10/26/20 08:05 Dose: 1,000 units Documented by: PG Care Time/CCT Total # of Minutes Spent Total Time Spent with Patient: Total time spent is greater than 50% in coordination of care (as documented) at patient's floor/unit and/or counseling patient: Coding Level of Care Code 59212 Subseq Hosp Care Lvl 2 Diagnoses Acute respiratory failure with hypoxia J96.01 Pneumonia due to 2019 novel coronavirus U07.1; J12.82 Pulmonary embolism associated with COVID-19 U07.1; I26.99 Hyponatremia E87.1 Metabolic encephalopathy G93.41 MCI (mild cognitive impairment) G31.84 Parkinsonism G20 Parkinsonism type: unspecified Chronic pain syndrome G89.4 Elevated AST (SGOT) R74.01 Abnormal casts in urine R82.998 DVT prophylaxis Z29.9 Insomnia G47.00 (1) Parkinsonism Parkinsonism type: unspecified Qualified Code(s): G20 - Parkinson's disease
[2020-10-26] MEDS: REMDESIVIR 100 MG in SODIUM CHLORIDE 0.9% 230 ML IV SCH (20:08)
[2020-10-26] MEDS: SODIUM CHLORIDE 0.9% 10ML FLUSH IV SCH (20:09)
[2020-10-26] MEDS: MIRTAZAPINE SOLTAB 15 MG PO SCH (20:09)
[2020-10-26] MEDS: LORazepam 0.5 MG TAB PO PRN (21:12)
[2020-10-27 06:45] LABS: Hematocrit (blood only) 41.3 % (42-52); Mean Corpuscular Hemoglobin 32.2 pg (25-34); Mean Corpuscular Hgb Conc 33.9 g/dL (32-36); Mean Corpuscular Volume 94.9 fL (80-100); Mean Platelet Volume 10.1 fL (7.4-10.4); Platelet Count 405 K/uL (130-400); RDW Coefficient of Variation 13.2 % (11.5-14.5); RDW Standard Deviation 45.7 fL (36.4-46.3); Red Blood Count 4.35 M/uL (4.7-6.1); White Blood Count 8.55 K/uL (4.8-10.8)
[2020-10-27 07:20] LABS: BUN Creatinine Ratio 19.2 (10-20); Calcium 8.2 mg/dl (8.5-10.1); Creatinine Clr Calc Pharmacy 124.9 ml/min; Est GFR (African American) 115.1; Est GFR (Non-African American) 99.3; Potassium 3.6 mmol/L (3.5-5.1)
[2020-10-27] MEDS: oxyCODONE HCL IR 5 MG TAB (IMMEDIATE RELEASE) PO PRN ×2 (07:56→15:09)
[2020-10-27] MEDS: SERTRALINE HCL 100 MG TABLET PO SCH (07:57)
[2020-10-27] MEDS: ASPIRIN 81 MG ECTAB PO SCH (07:57)
[2020-10-27] MEDS: dexAMETHasone 6 MG in SYRINGE 0 ML IV SCH (07:57)
[2020-10-27] MEDS: POLYETHYLENE (MIRALAX) 17 GM PACK PO SCH (07:58)
[2020-10-27] MEDS: RIVAROXABAN 15 MG TAB PO SCH ×2 (07:58→20:04)
[2020-10-27] MEDS: DONEPEZIL HCL 10 MG TAB PO SCH (07:58)
[2020-10-27] MEDS: GABAPENTIN 300 MG CAP PO SCH ×3 (07:58→20:03)
[2020-10-27] MEDS: CHOLECALCIFEROL 1,000 UNITS 25 MCG TAB PO SCH (07:59)
[2020-10-27] MEDS: PRIMIDONE 50 MG TAB PO SCH ×3 (07:59→20:04)
[2020-10-27] MEDS: CARBIDOPA/LEVODOPA 25/100MG TAB PO SCH ×4 (07:59→20:04)
[2020-10-27] MEDS: oxyCODONE HCL 20 MG TABCR (OxyCONTIN) PO SCH (09:01)
--- NOTE | 2020-10-27 10:39 | Hospitalist Progress Note ---
Date of Service October 27, 2020 Assessment & Plan (1) Acute respiratory failure with hypoxia: due to COVID 19 pneumonia and acute PE titrated down to 3L today, no distress continue to try to wean down oxygen requirements plan for two step tomorrow might be ready for discharge later tomorrow or Saturday (2) Pneumonia due to 2019 novel coronavirus: Acute respiratory failure with hypoxia due to Covid pneumonia illness started 10/15/20 * dexamethasone 6mg IV/PO daily x 10 days, today is day 6 * plasma administered * Remdesivir x 5 days, completed 2/3 Pulmonary toilet, self-proning (if he can tolerate - has chronic low back pain), and flutter valve/incentive. O2 to keep sats >90%. down to 3L today, slowly improving (3) Pulmonary embolism associated with COVID-19: Started heparin infusion on admission - transitioned to xarelto 15mg BID x 21 days then 20mg daily would need 6 months of treatment (4) Hyponatremia: Resolved (5) Metabolic encephalopathy: likely combination of COVID, polypharmacy and hypoxia mental status is back to baseline now that he is no longer hypoxic increased gabapentin back to 600 TID for neuropathic pain slept well with Ativan 0.5mg last night pain is controlled he is alert and oriented x 3 (6) MCI (mild cognitive impairment): Continue usual outpatient meds. Donepezil (7) Parkinsonism: Follows with Dr Thompson, [facility]. Last visit 06/2020. Cont sinemet. Cont primidone. continue neurontin Patient with worsening tremors, rigidity, etc last 1-2 weeks. There is documentation in the literature that COVID-19 worsens movement disorders. He also has been noncompliant with his parkinsonism meds per sister. (8) Chronic pain syndrome: Takes oxycodone daily at home for lumbar back pain, right shoulder pain, left knee pain, etc. Continue such. Also takes gabapentin Bowel regimen. (9) Elevated AST (SGOT): Likely 2nd to COVID-19 itself. Serial ast/alt in light of Remdesivir use, levels have been stable (10) Abnormal casts in urine: RBC casts, WBC casts, granular casts. C/w probable ATN in setting of COVID-19. He has protein on u/a but no blood - this would argue against glomerulonephritis. (11) DVT prophylaxis: Transition to therapeutic Xarelto full code. PT, OT evals. (12) Insomnia: likely due to being in hospital, uncomfortable in bed will increase his gabapentin to 600mg TID which is his home dose will try a small dose of Ativan 0.5mg PO at bedtime -- worked great, slept well last night Admission and Anticipated Discharge Date Admission Date: October 22, 2020 Subjective patient doing well today, pain is controlled with 20mg of Oxycontin this morning he says he slept really well with the small dose of Ativan last night he is breathing well, down to 3L NC, no distress he ambulated over 50ft with therapy, no assistance discussed getting two step tomorrow, likely home on Saturday he wants to go home tomorrow, I told him I think that might be a little early but we will see labs are normal today I updated his sister of the plan he is eating well, no chest pain, no nausea, no diarrhea, no fever/chills Review of Systems Review of Systems: All systems reviewed & are unremarkable except as noted in Subjective Physical Exam Constitutional: WD/WN, vitals as above no acute distress Neck: trachea midline, no thyromegaly Respiratory: normal respiratory effort, lungs clear to auscultation Cardiovascular: RRR, no murmur, no edema Gastrointestinal (Abdomen): normal bowel sounds, soft, nontender, no hepatosplenomegaly Musculoskeletal: no cyanosis or clubbing, extremities motor strength 5/5 Skin: no rashes, warm and dry Neurologic: patellar DTR's 2+ bilat, sensation intact and PERRL, EOMI, accommodation nl, no face palsy, no dysarthria Psychiatric: A+Ox3, euthymic affect Lymphatic: no cervical or axillary lymphadenopathy Results & Data Results & Data ([facility]) Vital Signs (Past 12 Hours) Vital Signs Temp Pulse Pulse Resp BP BP Pulse Ox 10/27/20 08:09 10/27/20 07:28 36.9 C 79 20 138/78 90 10/27/20 03:32 37.0 C 57 L 20 134/72 91 10/27/20 01:26 62 10/26/20 23:23 36.9 C 65 19 129/62 91 Pulse Ox 10/27/20 08:09 92 10/27/20 07:28 10/27/20 03:32 10/27/20 01:26 10/26/20 23:23 Laboratory Results Laboratory Results - last 24 hr 10/27/20 10/27/20 05:56 05:56 WBC 8.55 RBC 4.35 L Hgb 14.0 Hct 41.3 L MCV 94.9 MCH 32.2 MCHC 33.9 RDW Std Deviation 45.7 RDW Coeff of Forrest 13.2 Plt Count 405 H MPV 10.1 Sodium 142 Potassium 3.6 Chloride 107 Carbon Dioxide 31 Anion Gap 4.0 BUN 13 Creatinine 0.66 Est Cr Clr Drug Dosing 124.9 Est GFR ( Amer) 115.1 Est GFR (Non-Af Amer) 99.3 BUN/Creatinine Ratio 19.2 Glucose 78 Calcium 8.2 L Medications Administered Current Inpatient Medications Acetaminophen (Acetaminophen 325 Mg Tab) 650 mg PO Q4H PRN PRN Reason: Pain or Fever Stop: 11/21/20 18:40 Aspirin (Aspirin 81 Mg Ectab) 81 mg PO QAM [facility] Stop: 11/22/20 08:59 Last Admin: 10/27/20 07:57 Dose: 81 mg Documented by: Carbidopa/Levodopa (Carbidopa/Levodopa 25/100mg Tab) 2 tab PO QID [facility] Stop: 11/21/20 20:59 Last Admin: 10/27/20 07:59 Dose: 2 tab Documented by: Donepezil HCl (Donepezil Hcl 10 Mg Tab) 10 mg PO QAM [facility] Stop: 11/22/20 08:59 Last Admin: 10/27/20 07:58 Dose: 10 mg Documented by: Gabapentin (Gabapentin 300 Mg Cap) 600 mg PO TID [facility] Stop: 11/25/20 13:59 Last Admin: 10/27/20 07:58 Dose: 600 mg Documented by: Dexamethasone 6 mg/ Syringe 1.5 mls @ 1 mls/min IV DAILY [facility] Stop: 10/31/20 09:02 Last Admin: 10/27/20 07:57 Dose: 1 mls/min Documented by: Lorazepam (Lorazepam 0.5 Mg Tab) 0.5 mg PO HS PRN PRN Reason: Insomnia Stop: 11/25/20 13:00 Last Admin: 10/26/20 21:12 Dose: 0.5 mg Documented by: Mirtazapine (Mirtazapine Soltab 15 Mg) 45 mg PO HS [facility] Stop: 11/21/20 20:59 Last Admin: 10/26/20 20:09 Dose: 45 mg Documented by: Ondansetron HCl (Ondansetron Inj 2 Mg/Ml 2 Ml Vial) 4 mg IV Q6H PRN PRN Reason: Nausea Stop: 11/21/20 18:40 Oxycodone HCl (Oxycodone Hcl Ir 5 Mg Tab (Immediate Release)) 10 mg PO TID PRN PRN Reason: pain Stop: 11/05/20 18:40 Last Admin: 10/27/20 07:56 Dose: 10 mg Documented by: Oxycodone HCl (Oxycodone Hcl 20 Mg Tabcr (Oxycontin)) 20 mg PO QAM [facility] Stop: 11/10/20 08:59 Last Admin: 10/27/20 09:01 Dose: 20 mg Documented by: Polyethylene Glycol (Polyethylene (Miralax) 17 Gm Pack) 17 gm PO DAILY [facility] Stop: 11/22/20 08:59 Last Admin: 10/27/20 07:58 Dose: Not Given Documented by: Primidone (Primidone 50 Mg Tab) 50 mg PO TID [facility] Stop: 11/21/20 20:59 Last Admin: 10/27/20 07:59 Dose: 50 mg Documented by: Rivaroxaban (Rivaroxaban 15 Mg Tab) 15 mg PO BID [facility] Stop: 11/12/20 21:01 Last Admin: 10/27/20 07:58 Dose: 15 mg Documented by: Sertraline HCl (Sertraline Hcl 100 Mg Tablet) [facility] Stop: 11/22/20 08:59 Last Admin: 10/27/20 07:57 Dose: 100 mg Documented by: Vitamin D (Cholecalciferol 1,000 Units 25 Mcg Tab) 1,000 units PO QAM [facility] Stop: 11/22/20 08:59 Last Admin: 10/27/20 07:59 Dose: 1,000 units Documented by: PG Care Time/CCT Total # of Minutes Spent Total Time Spent with Patient: Total time spent is greater than 50% in coordination of care (as documented) at patient's floor/unit and/or counseling patient: Coding Level of Care Code 41063 Subseq Hosp Care Lvl 3 Diagnoses Acute respiratory failure with hypoxia J96.01 Pneumonia due to 2019 novel coronavirus U07.1; J12.82 Pulmonary embolism associated with COVID-19 U07.1; I26.99 Hyponatremia E87.1 Metabolic encephalopathy G93.41 MCI (mild cognitive impairment) G31.84 Parkinsonism G20 Parkinsonism type: unspecified Chronic pain syndrome G89.4 Elevated AST (SGOT) R74.01 Abnormal casts in urine R82.998 DVT prophylaxis Z29.9 Insomnia G47.00 (1) Parkinsonism Parkinsonism type: unspecified Qualified Code(s): G20 - Parkinson's disease
[2020-10-27] MEDS: MIRTAZAPINE SOLTAB 15 MG PO SCH (20:04)
[2020-10-27] MEDS: LORazepam 0.5 MG TAB PO PRN (21:01)
[2020-10-28] MEDS: PRIMIDONE 50 MG TAB PO SCH ×3 (07:48→20:43)
[2020-10-28] MEDS: oxyCODONE HCL 20 MG TABCR (OxyCONTIN) PO SCH (07:48)
[2020-10-28] MEDS: dexAMETHasone 6 MG in SYRINGE 0 ML IV SCH (07:48)
[2020-10-28] MEDS: RIVAROXABAN 15 MG TAB PO SCH ×2 (07:48→20:41)
[2020-10-28] MEDS: GABAPENTIN 300 MG CAP PO SCH ×3 (07:49→20:42)
[2020-10-28] MEDS: CARBIDOPA/LEVODOPA 25/100MG TAB PO SCH ×4 (07:49→20:41)
[2020-10-28] MEDS: CHOLECALCIFEROL 1,000 UNITS 25 MCG TAB PO SCH (07:49)
[2020-10-28] MEDS: ASPIRIN 81 MG ECTAB PO SCH (07:50)
[2020-10-28] MEDS: DONEPEZIL HCL 10 MG TAB PO SCH (07:50)
[2020-10-28] MEDS: SERTRALINE HCL 100 MG TABLET PO SCH (07:50)
[2020-10-28] MEDS: POLYETHYLENE (MIRALAX) 17 GM PACK PO SCH ×3 (07:51→20:40)
--- NOTE | 2020-10-28 09:25 | Hospitalist Progress Note ---
Date of Service October 28, 2020 Assessment & Plan (1) Acute respiratory failure with hypoxia: due to COVID 19 pneumonia and acute PE titrated down to 3L the past two days, no distress continue to try to wean down oxygen requirements plan for two step today to arrange for home oxygen his sister can be here tomorrow afternoon to take him home to [place] (2) Pneumonia due to 2019 novel coronavirus: Acute respiratory failure with hypoxia due to Covid pneumonia illness started 10/15/20 * dexamethasone 6mg IV/PO daily x 10 days, today is day 7 * plasma administered * Remdesivir x 5 days, completed 2/3 Pulmonary toilet, self-proning (if he can tolerate - has chronic low back pain), and flutter valve/incentive. O2 to keep sats >90%. down to 3L past two days, slowly improving, no tachypnea or respiratory distress (3) Pulmonary embolism associated with COVID-19: Started heparin infusion on admission - transitioned to xarelto 15mg BID x 21 days then 20mg daily would need 6 months of treatment (4) Hyponatremia: Resolved (5) Metabolic encephalopathy: likely combination of COVID, polypharmacy and hypoxia mental status is back to baseline now that he is no longer hypoxic increased gabapentin back to 600 TID for neuropathic pain sleeping well with Ativan 0.5mg HS pain is controlled he is alert and oriented x 3 (6) MCI (mild cognitive impairment): Continue usual outpatient meds. Donepezil (7) Parkinsonism: Follows with Dr Thompson, [facility] neurolog[facility]. Last visit 06/2020. Cont sinemet. Cont primidone. continue neurontin Patient with worsening tremors, rigidity, etc last 1-2 weeks. There is documentation in the literature that COVID-19 worsens movement disorders. He also has been noncompliant with his parkinsonism meds per sister. symptoms much better past few days (8) Chronic pain syndrome: Takes oxycodone daily at home for lumbar back pain, right shoulder pain, left knee pain, etc. Continue such. Also takes gabapentin Bowel regimen. (9) Elevated AST (SGOT): Likely 2nd to COVID-19 itself. Serial ast/alt in light of Remdesivir use, levels have been stable (10) Abnormal casts in urine: RBC casts, WBC casts, granular casts. C/w probable ATN in setting of COVID-19. He has protein on u/a but no blood - this would argue against glomerulonephritis. (11) DVT prophylaxis: Transition to therapeutic Xarelto full code. PT, OT evals. (12) Insomnia: likely due to being in hospital, uncomfortable in bed will increase his gabapentin to 600mg TID which is his home dose will try a small dose of Ativan 0.5mg PO at bedtime -- worked great, slept well last night (13) Constipated: give a dose of Miralax today Admission and Anticipated Discharge Date Admission Date: October 22, 2020 Subjective patient feeling great, no issues, breathing is stable, same as yesterday he is on 3L while in bed, he says he slept well, pain is controlled plan for two step today, he agrees, says he has not experienced dyspnea on exertion he is eating well no BM for a few days, he says he can go 4-5 days at home sometimes with his Parkinsons disease no labs today as they were stable yesterday he plans on going home tomorrow, his sister will be driving up from [facility] Review of Systems Review of Systems: All systems reviewed & are unremarkable except as noted in Subjective Respiratory: + dyspnea on exertion; no cough and no dyspnea Psychiatric: + abnormal sleep pattern, + irritability and + anxiety Physical Exam Constitutional: WD/WN, vitals as above no acute distress Neck: trachea midline, no thyromegaly Respiratory: normal respiratory effort, lungs clear to auscultation Cardiovascular: RRR, no murmur, no edema Gastrointestinal (Abdomen): normal bowel sounds, soft, nontender, no hepatosplenomegaly Musculoskeletal: no cyanosis or clubbing, extremities motor strength 5/5 Skin: no rashes, warm and dry Neurologic: patellar DTR's 2+ bilat, sensation intact and PERRL, EOMI, accommodation nl, no face palsy, no dysarthria Psychiatric: A+Ox3, euthymic affect Lymphatic: no cervical or axillary lymphadenopathy Results & Data Results & Data ([facility]) Vital Signs (Past 12 Hours) Vital Signs Temp Pulse Pulse Resp BP Pulse Ox Pulse Ox 10/28/20 07:46 92 10/28/20 07:14 36.6 C 70 18 119/62 94 10/28/20 03:50 36.4 C L 80 18 93 10/28/20 00:32 59 L 10/27/20 23:59 35.6 C L 57 L 18 105/59 L 93 Medications Administered Current Inpatient Medications Acetaminophen (Acetaminophen 325 Mg Tab) 650 mg PO Q4H PRN PRN Reason: Pain or Fever Stop: 11/21/20 18:40 Aspirin (Aspirin 81 Mg Ectab) 81 mg PO QAM [facility] Stop: 11/22/20 08:59 Last Admin: 10/28/20 07:50 Dose: 81 mg Documented by: Carbidopa/Levodopa (Carbidopa/Levodopa 25/100mg Tab) 2 tab PO QID [facility] Stop: 11/21/20 20:59 Last Admin: 10/28/20 07:49 Dose: 2 tab Documented by: Donepezil HCl (Donepezil Hcl 10 Mg Tab) 10 mg PO QAM [facility] Stop: 11/22/20 08:59 Last Admin: 10/28/20 07:50 Dose: 10 mg Documented by: Gabapentin (Gabapentin 300 Mg Cap) 600 mg PO TID [facility] Stop: 11/25/20 13:59 Last Admin: 10/28/20 07:49 Dose: 600 mg Documented by: Dexamethasone 6 mg/ Syringe 1.5 mls @ 1 mls/min IV DAILY [facility] Stop: 10/31/20 09:02 Last Admin: 10/28/20 07:48 Dose: 1 mls/min Documented by: Lorazepam (Lorazepam 0.5 Mg Tab) 0.5 mg PO HS PRN PRN Reason: Insomnia Stop: 11/25/20 13:00 Last Admin: 10/27/20 21:01 Dose: 0.5 mg Documented by: Mirtazapine (Mirtazapine Soltab 15 Mg) 45 mg PO HS [facility] Stop: 11/21/20 20:59 Last Admin: 10/27/20 20:04 Dose: 45 mg Documented by: Ondansetron HCl (Ondansetron Inj 2 Mg/Ml 2 Ml Vial) 4 mg IV Q6H PRN PRN Reason: Nausea Stop: 11/21/20 18:40 Oxycodone HCl (Oxycodone Hcl Ir 5 Mg Tab (Immediate Release)) 10 mg PO TID PRN PRN Reason: pain Stop: 11/05/20 18:40 Last Admin: 02/04/21 15:09 Dose: 10 mg Documented by: Oxycodone HCl (Oxycodone Hcl 20 Mg Tabcr (Oxycontin)) 20 mg PO QAM [facility] Stop: 11/10/20 08:59 Last Admin: 10/28/20 07:48 Dose: 20 mg Documented by: Polyethylene Glycol (Polyethylene (Miralax) 17 Gm Pack) 17 gm PO DAILY [facility] Stop: 11/22/20 08:59 Last Admin: 10/28/20 07:51 Dose: Not Given Documented by: Primidone (Primidone 50 Mg Tab) 50 mg PO TID [facility] Stop: 11/21/20 20:59 Last Admin: 10/28/20 07:48 Dose: 50 mg Documented by: Rivaroxaban (Rivaroxaban 15 Mg Tab) 15 mg PO BID [facility] Stop: 11/12/20 21:01 Last Admin: 10/28/20 07:48 Dose: 15 mg Documented by: Sertraline HCl (Sertraline Hcl 100 Mg Tablet) 100 mg PO QAM [facility] Stop: 11/22/20 08:59 Last Admin: 10/28/20 07:50 Dose: 100 mg Documented by: Vitamin D (Cholecalciferol 1,000 Units 25 Mcg Tab) 1,000 units PO QAM [facility] Stop: 11/22/20 08:59 Last Admin: 10/28/20 07:49 Dose: 1,000 units Documented by: PG Care Time/CCT Total # of Minutes Spent Total Time Spent with Patient: Total time spent is greater than 50% in coordination of care (as documented) at patient's floor/unit and/or counseling patient: Coding Level of Care Code 54154 Subseq Hosp Care Lvl 3 Diagnoses Acute respiratory failure with hypoxia J96.01 Pneumonia due to 2019 novel coronavirus U07.1; J12.82 Pulmonary embolism associated with COVID-19 U07.1; I26.99 Hyponatremia E87.1 Metabolic encephalopathy G93.41 MCI (mild cognitive impairment) G31.84 Parkinsonism G20 Parkinsonism type: unspecified Chronic pain syndrome G89.4 Elevated AST (SGOT) R74.01 Abnormal casts in urine R82.998 DVT prophylaxis Z29.9 Insomnia G47.00 Constipated K59.00 (1) Parkinsonism Parkinsonism type: unspecified Qualified Code(s): G20 - Parkinson's disease
[2020-10-28] MEDS: oxyCODONE HCL IR 5 MG TAB (IMMEDIATE RELEASE) PO PRN ×2 (15:55→20:38)
[2020-10-28] MEDS: MIRTAZAPINE SOLTAB 15 MG PO SCH (22:04)
[2020-10-29 06:32] LABS: Hematocrit (blood only) 40.4 % (42-52); Hemoglobin 13.4 g/dL (14.0-18.0); Mean Corpuscular Hemoglobin 31.5 pg (25-34); Mean Corpuscular Hgb Conc 33.2 g/dL (32-36); Mean Corpuscular Volume 94.8 fL (80-100); Mean Platelet Volume 9.9 fL (7.4-10.4); Platelet Count 370 K/uL (130-400); RDW Coefficient of Variation 13.4 % (11.5-14.5); RDW Standard Deviation 46.2 fL (36.4-46.3); Red Blood Count 4.26 M/uL (4.7-6.1); White Blood Count 8.91 K/uL (4.8-10.8)
[2020-10-29] MEDS: SERTRALINE HCL 100 MG TABLET PO SCH (07:04)
[2020-10-29] MEDS: dexAMETHasone 6 MG in SYRINGE 0 ML IV SCH (07:04)
[2020-10-29] MEDS: CARBIDOPA/LEVODOPA 25/100MG TAB PO SCH (07:04)
[2020-10-29] MEDS: GABAPENTIN 300 MG CAP PO SCH (07:04)
[2020-10-29] MEDS: oxyCODONE HCL 20 MG TABCR (OxyCONTIN) PO SCH (07:04)
[2020-10-29] MEDS: POLYETHYLENE (MIRALAX) 17 GM PACK PO SCH (07:05)
[2020-10-29] MEDS: RIVAROXABAN 15 MG TAB PO SCH (07:05)
[2020-10-29] MEDS: DONEPEZIL HCL 10 MG TAB PO SCH (07:05)
[2020-10-29] MEDS: ASPIRIN 81 MG ECTAB PO SCH (07:06)
[2020-10-29] MEDS: CHOLECALCIFEROL 1,000 UNITS 25 MCG TAB PO SCH (07:06)
[2020-10-29] MEDS: PRIMIDONE 50 MG TAB PO SCH (07:06)
[2020-10-29 07:08] LABS: BUN Creatinine Ratio 18.4 (10-20); Calcium 8.7 mg/dl (8.5-10.1); Creatinine Clr Calc Pharmacy 98.3 ml/min; Est GFR (African American) 104.8; Est GFR (Non-African American) 90.4; Magnesium 2.2 mg/dl (1.8-2.4); Potassium 3.7 mmol/L (3.5-5.1)
--- NOTE | 2020-10-29 09:31 | Discharge Summary ---
Date of Service October 29, 2020 Admission HPI Per Admitting Provider 70yo male with history of parkinsonism, followed by Dr Roberto Carlos Thompson [facility], who presents with ~7 days of worsening parkinsonism symptoms and tremors, extreme weakness, buckling of the knees with standing/walking, dyspnea, chills, cough, chest tightness (central), nasal congestion, loss of appetite, fatigue, and myalgias. He has had calf muscle soreness for 1-2 weeks b/l. Sister and [id number] came into [facility] this Saturday to help him move into a new apartment. Upon her arrival she noted severe weakness, fatigue, slurry speech, etc. She also noted that he was not caring for himself, not taking his meds correctly, and had confusion. Takes chronic oxycodone for back pain and left knee OA. Receives monthly oxycodone from PCP for such according to PDMP. Upon arrival today in the ER he was noted to be hypoxic in the low/mid 80s in room air. Principal Diagnosis COVID 19 pneumonia causing acute hypoxic respiratory failure Discharge Exam Constitutional WD/WN, vitals as above no acute distress Neck trachea midline, no thyromegaly Respiratory normal respiratory effort, lungs clear to auscultation Cardiovascular RRR, no murmur, no edema Gastrointestinal (Abdomen) normal bowel sounds, soft, nontender, no hepatosplenomegaly Musculoskeletal no cyanosis or clubbing, extremities motor strength 5/5 Skin no rashes, warm and dry Neurologic patellar DTR's 2+ bilat, sensation intact and PERRL, EOMI, accommodation nl, no face palsy, no dysarthria Psychiatric A+Ox3, euthymic affect Lymphatic no cervical or axillary lymphadenopathy Discharge Data Allergies Allergy/AdvReac Type Severity Reaction Status Date / Time doxycycline Allergy Intermediate rash Verified 10/22/20 15:33 Consultations 10/22/20 16:35 ED Decision to Admit Stat Ordered Studies 10/22/20 14:09 CT head/brain wo con Stat 10/22/20 16:14 CT angio chest PE protocol Stat Hospital Course (1) Acute respiratory failure with hypoxia: due to COVID 19 pneumonia and acute PE titrated down to 2L at rest and 3L on exertion patient says he feels "so much better, I feel great" on the day of discharge home oxygen arranged for 2L at rest and 3L on exertion told him to expect to be on oxygen 7-10 days he can follow up with PCP to get pulse ox checked in the office (2) Pneumonia due to 2019 novel coronavirus: Acute respiratory failure with hypoxia due to Covid pneumonia illness started 10/15/20 * dexamethasone 6mg IV/PO daily x 10 days, today is day 8 * plasma administered * Remdesivir x 5 days, completed / Pulmonary toilet, self-proning (if he can tolerate - has chronic low back pain), and flutter valve/incentive. O2 to keep sats >90%. doing so much better the past few days finish two more days of dexamethasone on discharge continue home oxygen stay well nourished and well hydrated and get rest no longer needs isolation, he is over two weeks out from onset of symptoms (3) Pulmonary embolism associated with COVID-19: Started heparin infusion on admission - transitioned to xarelto 15mg BID x 21 days then 20mg daily needs 17 more days of 15mg BID dosing, change to 20mg daily on 10/15 and continue for about 6 months follow up with PCP (4) Hyponatremia: Resolved (5) Metabolic encephalopathy: likely combination of COVID, polypharmacy and hypoxia mental status is back to baseline for past 5 days now that he is no longer hypoxic increased gabapentin back to 600 TID for neuropathic pain sleeping well with Ativan 0.5mg HS pain is controlled he is alert and oriented x 3 (6) MCI (mild cognitive impairment): Continue usual outpatient meds. Donepezil (7) Parkinsonism: Follows with Dr Thompson, [facility] neurology. Last visit 06/2020. Cont sinemet. Cont primidone. continue neurontin Patient with worsening tremors, rigidity, etc last 1-2 weeks. There is documentation in the literature that COVID-19 worsens movement disorders. He also has been noncompliant with his parkinsonism meds per sister. symptoms much better past few days walking independently with therapy safe to return home (8) Chronic pain syndrome: Takes oxycodone daily at home for lumbar back pain, right shoulder pain, left knee pain, etc. Continue such. Also takes gabapentin Bowel regimen. (9) Elevated AST (SGOT): Likely 2nd to COVID-19 itself. Serial ast/alt in light of Remdesivir use, levels have been stable (10) Abnormal casts in urine: RBC casts, WBC casts, granular casts. C/w probable ATN in setting of COVID-19. He has protein on u/a but no blood - this would argue against glomerulonephritis. (11) DVT prophylaxis: Transition to therapeutic Xarelto full code. PT, OT evals. (12) Insomnia: likely due to being in hospital, uncomfortable in bed will increase his gabapentin to 600mg TID which is his home dose will try a small dose of Ativan 0.5mg PO at bedtime -- worked great, slept well last night (13) Constipated: give a dose of Miralax today Total Time Total Time Spent Total Time Spent (In Minutes): 35 minutes Total Time Includes: Examination of the Patient, Discharge Planning, Medication Reconciliation and Other (communication with patient's sister who will take him home) Discharge Plan Discharge Items Patient Disposition: Home - Home Health Services Reason For Visit: ACUTE HYPOXIC RESP FAILURE 2ND COVID-19 PNEUMONIA Discharge Diagnosis: Acute hypoxic respiratory failure COVID 19 pneumonia Pulmonary embolism Condition on Discharge: Good Goals: stay well rested and well hydrated and well nourished complete course of dexamethasone use oxygen for next 1-2 weeks Activity: Resume your previous activity Weightbearing: Full weightbearing Non-emergency contact: Primary Care Provider Call non-emergency contact if: you have any medication questions, your symptoms worsen and you have a fever Follow-up/Referrals: Mikki Mason MD [Primary Care Provider] - (one week) Diet: Regular Addtl Attending Provider Instructions: Medications: - DEXAMETHASONE: 6mg daily for 2 more days starting tomorrow, this will complete 10 days total treatment - XARELTO: this is treatment for pulmonary emboli (blood clots in lungs) take 15mg TWICE a day for 17 more days, on 11/15/20 start taking 20mg daily with evening meal you will continue on this for at least 6 months, discuss with PCP about how long to take COVID 19 pneumonia, acute hypoxia (low oxygen) you have responded well to dexamethasone, completed 8 days here, continue for 2 more days you completed 5 days of Remdesivir we have titrated your oxygen down to 2L at rest and 3L on exertion, arranged for home oxygen suspect you will continue to need oxygen for 1-2 weeks follow up with your PCP to check an ambulatory pulse ox study in the office in about a week you are no longer contagious as you are about 15 days into illness, no need to quarantine further Pulmonary embolism (blood clots in lungs) continue to take Xarelto as prescribed, most likely cause of the clots is COVID 19, known to cause hypercoagulability should take for at least 6 months your PCP can tell you when to stop Pending Studies at Discharge: No Stand-Alone Forms: My [facility], Smoking Cessation Medications and DC Order Prescriptions: New Xarelto 15 mg Tablet 15 mg PO BID 17 Days Qty: 34 RF: 0 dexamethasone 4 mg tablet 6 mg PO DAILY 2 Days Qty: 3 RF: 0 Xarelto 20 mg tablet 20 mg PO DAILY Qty: 30 RF: 3 Continued aspirin [Adult Aspirin Regimen] 81 mg tablet,delayed release (DR/EC) 81 mg PO QAM RF: 0 meloxicam 15 mg tablet 15 mg PO QAM RF: 0 oxycodone 10 mg tablet 10 mg PO TID PRN (Reason: pain) RF: 0 cholecalciferol (vitamin D3) 1,000 unit capsule 1,000 units PO QAM RF: 0 mirtazapine 45 mg tablet 45 mg PO HS 90 Days Qty: 90 RF: 1 gabapentin 600 mg tablet 600 mg PO TID Qty: 270 RF: 1 carbidopa-levodopa 25-100 mg tablet 2 tab PO QID 90 Days Qty: 720 RF: 1 primidone 50 mg tablet 50 mg PO TID 90 Days Qty: 270 RF: 1 donepezil 10 mg tablet 10 mg PO QAM RF: 0 sertraline 100 mg tablet 100 mg PO QAM RF: 0 Discharge Orders: Discharge Order (Routine); Ordered 10/29/20 Ordered By: Antoine Yanes Admission Data Admit Date/Time: 10/22/20 17:40 Attending Provider: Antoine Yanes Admit Provider: Ronald Pérez Primary Care Provider: Mikki Mason Other Providers: Ronald Pérez Coding Level of Care Code D/C Day Management >30 mins Diagnoses Acute respiratory failure with hypoxia J96.01 Pneumonia due to 2019 novel coronavirus U07.1; J12.82 Pulmonary embolism associated with COVID-19 U07.1; I26.99 Hyponatremia E87.1 Metabolic encephalopathy G93.41 MCI (mild cognitive impairment) G31.84 Parkinsonism G20 Parkinsonism type: unspecified Chronic pain syndrome G89.4 Elevated AST (SGOT) R74.01 Abnormal casts in urine R82.998 DVT prophylaxis Z29.9 Insomnia G47.00 Constipated K59.00
== END 2020-10-29 11:50 | disposition home health service (06) | DRG 177 ==
LOC: ED 13:45 → SUATTDRO 17:40 → 2E 17:40
DX: I26.99 Other pulmonary embolism without acute cor pulmonale; N17.0 Acute kidney failure with tubular necrosis; G20 Parkinson's disease; U07.1 COVID-19; G93.41 Metabolic encephalopathy; K59.00 Constipation, unspecified; Z87.891 Personal history of nicotine dependence; G47.00 Insomnia, unspecified; G89.4 Chronic pain syndrome; J96.01 Acute respiratory failure with hypoxia; E87.1 Hypo-osmolality and hyponatremia; Z79.82 Long term (current) use of aspirin; G31.84 Mild cognitive impairment of uncertain or unknown etiology; R74.01 Elevation of levels of liver transaminase levels; J12.82 Pneumonia due to coronavirus disease 2019